=== PATIENT | female | born 2000 | race Caucasian/White ===

== ENCOUNTER 2021-05-10 22:52 | Emergency (ER) | payer OTHER ==
[2021-05-11 03:53] LABS: Hemoglobin 13.8 g/dL (12.0-15.5); Red Blood Cell (RBC) Count 4.68 10x6/uL (3.90-5.03); White Blood Cell (WBC) Count 10.8 10x3/uL (3.5-10.5)
[2021-05-11 03:54] LABS: %Basophils 0.7 % (0.0-2.0); %Eosinophils 1.3 % (0.0-6.0); %Lymphocytes 29.1 % (18.0-47.0); %Monocytes 7.1 % (0.0-10.0); %Neutrophils 61.2 % (40.0-75.0); Mean Corpuscular HGB CONC 34.1 g/dL (32.0-36.0); Mean Platelet Volume 10.6 fl (7.4-10.4); Platelet Count 293 10x3/uL (150-450); RBC Distribution Width 11.9 % (11.5-14.5)
[2021-05-11 04:40] LABS: Pregnancy Test - Urine (BHCG) Negative (Negative)
[2021-05-11 04:43] LABS: Pregu Control Background? CLEAR/WHITE (CLR/WHITE); Pregu Control Bar Appear? YES (CONTROL BAR)
[2021-05-11 04:47] LABS: Free T4 (Free Thyroxine) 1.02 ng/dL (0.70-1.48); Potassium 4.3 mmol/L (3.5-5.1); Sodium 142 mmol/L (136-145); Thyroid Stimulating Hormone 2.2224 uIU/mL (0.35-4.94)
[2021-05-11 04:48] LABS: BUN (Urea Nitrogen) 14 mg/dL (7.0-18.7); Bilirubin, Total 0.7 mg/dL (0.2-1.2); Carbon Dioxide 28 mmol/L (22-29); Chloride 107 mmol/L (98-107); Glucose 86 mg/dL (70-105)
[2021-05-11 04:49] LABS: ALT (SGPT) 20 U/L (8-55); AST (SGOT) 16 U/L (5-34); Albumin 4.3 g/dL (3.5-5.0); Alkaline Phosphatase 43 U/L (40-100); Globulin 2.4 g/dL (2.4-3.5); Protein, Total 6.7 g/dL (6.0-8.3)
[2021-05-11 04:55] LABS: Anion Gap 11 mmol/L (10-20)
== END 2021-05-11 02:30 | disposition home or self-care (01) ==
LOC: CSHERS 22:52
DX: R00.2 Palpitations (principal)
CPT/HCPCS: 80053; 81025; 83735; 84439; 84443; 85025; 93005